=== PATIENT | male | born 1980 | race Two or more races ===

== ENCOUNTER 2024-11-17 17:05 | Emergency (ER) | payer OTHER ==
[~2024-11-17] VITALS: Ht 180.3 cm; Wt 93.0 kg
[~2024-11-17 17:05] MED LIST: MOUNJARO2.5 MG/0.5
[2024-11-17 18:35] VITALS: BP 117/80; O2SAT 99
[2024-11-17 20:01] LABS: BASO % 0.7 % (0.1-1.2); EOS # 0.08 (0.04-0.54); EOS % 1.1 % (0.7-7.0); LYMPH # 2.64 (1.18-3.74); LYMPH % 35.5 % (19.3-53.1); MEAN PLATELET VOLUME 10.20 fl (9.4-12.4); MONO # 0.55 (0.24-0.82); MONO % 7.4 % (4.7-12.5); NEUT # 4.09 (1.56-6.13); NEUT % 55.0 % (34.0-71.1); RED CELL DISTRIBUTION WIDTH 12.4 % (11.6-14.4)
[2024-11-17 20:28] LABS: ALT/SGPT 25.0 U/L (12-78); AST/SGOT 20.0 U/L (15-37); BILIRUBIN TOTAL 0.75 mg/dL (0.3-1.2); BUN CREA RATIO 19.0 (7.0-25.0); CREATININE SERUM 1.0 mg/dL (0.70-1.30); GFR 81.94; GLOBULINA 3.0 G/DL (2.4-3.5); GLUCOSE FASTING 86.0 mg/dL (65-100); OSMOLALITY SERUM 287.0 MOSM/KG (275-295)
[2024-11-17 20:28] LABS: URINE APPEARANCE Clear; URINE BILIRRUBIN Negative (NEGATIVE); URINE BLOOD Negative; URINE COLOR Yellow; URINE GLUCOSE Negative (NEGATIVE); URINE KETONE Trace (NEGATIVE); URINE LEUKOCYTE Negative; URINE NITRATE Negative; URINE PROTEIN Negative (NEGATIVE); URINE UROBILINOGEN 0.2 E.U./dl
[2024-11-17 20:31] LABS: URINE BACTERIA 8.3 uL (0.0-1933); URINE RBC 4.6 uL (0.0-20.8); URINE WBC 10.9 uL (0.0-23.2)
[2024-11-17 21:08] LABS: URINE CAST 0.00 uL (0.0-1.40); URINE EPITHELIAL CELLS 1.0 uL (0.0-38.8)
[2024-11-17] MEDS ORDERED: KETOROLAC TROMETHAMINE 30 MG VIAL IM STA (21:22)
[2024-11-17] MEDS ORDERED: ORPHENADRINE CITRATE 30 MG/ML AMPUL IM STA (21:22)
[2024-11-17] MEDS ORDERED: KETOROLAC TROMETHAMINE 30 MG VIAL ONE (21:26)
[2024-11-17] MEDS ORDERED: ORPHENADRINE CITRATE 30 MG/ML AMPUL ONE (21:27)
== END 2024-11-17 21:37 | disposition home or self-care (01) ==
LOC: ER 17:05
PROVIDERS: General Practice
DX: M54.9 Dorsalgia, unspecified (principal); Z91.013 Allergy to seafood